=== PATIENT | male | born 1950 | race Caucasian/White ===

== ENCOUNTER 2018-02-24 15:02 | Observation (INO) ==
[2018-02-24] MEDS ORDERED: MORPHINE 4 MG/1 ML VIAL ONE (15:20)
[2018-02-24] MEDS ORDERED: ONDANSETRON 4 MG/2 ML VIAL ONE (15:20)
[2018-02-24] MEDS ORDERED: MORPHINE 4 MG/1 ML VIAL IV STA (15:20)
[2018-02-24] MEDS ORDERED: ONDANSETRON 4 MG/2 ML VIAL IV STA (15:20)
[2018-02-24] MEDS ORDERED: SODIUM CHLORIDE 0.9% 1,000 ML IV STA (15:41)
[2018-02-24] MEDS ORDERED: DIPH/TET/ACEL PERT BOOSTER VACCINE 0.5 ML VIAL IM ONE (15:41)
[2018-02-24] MEDS ORDERED: CLINDAMYCIN INJ 600 MG in PREMIX 1 EACH IV STA (15:45)
[2018-02-24 15:52] LABS: Basophils % 0.8 % (0.0-0.8); Eosinophils # 0.1 10*3/uL (0.0-0.87); Eosinophils % 2.5 % (0.00-10.9); Hematocrit 35.9 VOL% (42.0-52.0); Hemoglobin 11.2 GM/DL (14.0-18.0); Immature Granulocytes % 0.2 %; Immature Granulocytes Absolute 0.01 #; Lymphocytes % 19.4 % (21.2-54.2); Mean Corpuscular HGB Conc 31.2 GM/DL (32-36); Mean Corpuscular Hemoglobin 27 PG (27-34); Mean Corpuscular Volume 84.9 FL (87-102); Monocytes # 0.7 10*3/uL (0.11-0.8); Monocytes % 12.8 % (1.7-12.7); Neutrophils # 3.3 10*3/uL (1.4-7.4); Neutrophils % 64.3 % (38.7-73.9); Platelet Count 186 T/CUMM (130-400); Red Blood Count 4.23 MC/CUMM (3.8-5.5); Red Cell Distribution Width 16.3 % (9.3-17.3); White Blood Count 5.2 T/CUMM (4-12)
[2018-02-24 16:02] LABS: Calcium 7.8 MG/DL (8.5-10.1); Osmolality,Calculated 292.4 MOS/KG (273-304); Potassium 4.1 MMOL/L (3.5-5.1)
[2018-02-24] MEDS ORDERED: FAMOTIDINE 20 MG/2 ML VIAL IV STA (16:06)
[2018-02-24] MEDS ORDERED: ePHEDrine 50 MG/ML AMP ONE (17:21)
[2018-02-24] MEDS ORDERED: fentaNYL 100 MCG/2 ML VIAL ONE (17:21)
[2018-02-24] MEDS ORDERED: SEVOFLURANE 1 UNIT/15 MINUTE INH ONE (17:21)
[2018-02-24] MEDS ORDERED: PROPOFOL 200 MG/20 ML VIAL IV ONE (17:21)
[2018-02-24] MEDS ORDERED: MIDAZOLAM 2 MG/2 ML VIAL ONE (17:21)
[2018-02-24] MEDS ORDERED: SUCCINYLCHOLINE 200 MG/10 ML VIAL ONE (17:22)
[2018-02-24] MEDS ORDERED: MORPHINE 4 MG/1 ML VIAL IV PRN (18:12)
[2018-02-24] MEDS ORDERED: PROMETHAZINE 25 MG/1 ML VIAL IM PRN (18:12)
[2018-02-24] MEDS ORDERED: ONDANSETRON 4 MG/2 ML VIAL IV PRN (18:12)
[2018-02-24] MEDS: LACTATED RINGERS 1,000 ML IV SCH (18:16)
[2018-02-24] MEDS: CLINDAMYCIN 300 MG CAPSULE PO SCH (21:07)
[2018-02-25] MEDS: CLINDAMYCIN 300 MG CAPSULE PO SCH ×2 (02:38→08:19)
[2018-02-25] MEDS: LACTATED RINGERS 1,000 ML IV SCH (02:41)
[2018-02-25 08:14] VITALS: BP 145/94
[2018-02-25] MEDS ORDERED: ENOXAPARIN 40 MG/0.4 ML SYRINGE SUBCUT SCH (09:00)
== END 2018-02-25 09:40 | disposition home or self-care (01) ==
LOC: N.ED 15:02 → N.EDINP 15:02 → N.3E 16:32
PROVIDERS: ADMIT Surgery; ATTEND Surgery